=== PATIENT | female | born 1960 | race Caucasian/White ===

== ENCOUNTER → 2016-05-21 | Outpatient (CLI) | payer OTHER ==
--- NOTE | 2016-05-21 11:45 | NM ---
EXAMINATION TYPE: NM hepatobiliary wo EF DATE OF EXAM: 05/21/2016 10:15 AM COMPARISON: NONE HISTORY: Right upper quadrant pain, R 10.11 TECHNIQUE: After the intravenous administration of 4.53 mCi Tc 99m Mebrofenin hepatobiliary scintigra phy is performed. Immediate images post injection. FINDINGS: Prompt homogenous uptake of radiopharmaceutical within the liver. Biliary activity noted within 4 min utes. Small bowel uptake is detected by 12 minutes. Gallbladder activity is thought to be present by 16 minutes but overlaps the region of the common bile duct. IMPRESSION: Exam is thought to be within normal limits.
== END | disposition home or self-care (01) ==
LOC: RADNMMAIN 07:22
PROVIDERS: ATTEND Surgery
DX: R10.11 Right upper quadrant pain (principal); Z90.49 Acquired absence of other specified parts of digestive tract
CPT/HCPCS: 78226; A9537

== ENCOUNTER → 2016-07-10 | Outpatient (CLI) | payer OTHER ==
[2016-07-10 10:52] LABS: CH 30.1; CHCM 32.4; HDW 2.18; HGB 14.7 gm/dL (11.4-16.0); MCH 30.6 pg (25.0-35.0); MCHC 32.7 g/dL (31.0-37.0); MCV 93.4 fL (80.0-100.0); Mean Platelet Volume 7.3; RBC 4.81 m/uL (3.80-5.40); RDW 12.5 % (11.5-15.5); WBC 6.9 k/uL (3.8-10.6)
[2016-07-10 11:06] LABS: ALT 67 U/L (9-52); AST 32 U/L (14-36); Alkaline Phosphatase 86 U/L (38-126); Anion Gap 14 mmol/L; Blood Urea Nitrogen 17 mg/dL (7-17); Calcium 9.6 mg/dL (8.4-10.2); Carbon Dioxide 27 mmol/L (22-30); Chloride 103 mmol/L (98-107); Glucose 97 mg/dL (74-99); Non-African American GFR(MDRD) >60 (>60 ml/min/1.73 sqM); Potassium 3.8 mmol/L (3.5-5.1); Sodium 144 mmol/L (137-145); Total Bilirubin 0.6 mg/dL (0.2-1.3)
== END ==
LOC: LABWHC1 10:31
PROVIDERS: ATTEND Surgery
DX: J18.9 Pneumonia, unspecified organism (principal); R10.9 Unspecified abdominal pain
CPT/HCPCS: 36415; 80053; 82306; 85027

== ENCOUNTER → 2018-07-14 | Outpatient (CLI) | payer OTHER ==
[2018-07-14 19:46] LABS: T4, Free (Free Thyroxine) 1.1 ng/dL (0.80-1.80)
[2018-07-14 19:52] LABS: Vitamin D 25 Hydroxy 48.7 ng/mL (30.0-100.0)
[2018-07-14 21:28] LABS: ACTH 10.3 pg/mL (0.00-45.99)
[2018-07-14 22:25] LABS: Hemoglobin A1C 6.1 % (4.0-6.0)
== END | disposition home or self-care (01) ==
LOC: LABWHC1 12:21
PROVIDERS: ATTEND Internal Medicine Endocrinology, Diabetes & Metabolism
DX: R53.83 Other fatigue (principal); R73.09 Other abnormal glucose
CPT/HCPCS: 36415; 82024; 82306; 82533; 83001; 83036; 84146; 84439; 84443; 84481

== ENCOUNTER → 2019-02-23 | Outpatient (CLI) | payer OTHER ==
[2019-02-23 10:38] LABS: Appearance,Urine Clear (Clear); Bilirubin,Urine Negative (Negative); Blood,Urine Negative (Negative); Color,Urine Yellow; Glucose,Urine (UA) Negative (Negative); Ketones,Urine Negative (Negative); Leukocyte Esterase,Urine Negative (Negative); Nitrite,Urine Negative (Negative); PH, Urine 6.5 (5.0-8.0); Protein,Urine Negative (Negative); Specific Gravity,Urine 1.016 (1.001-1.035); Urobilinogen,Urine <2.0 mg/dL (<2.0)
[2019-02-23 10:47] LABS: HCT 42.4 % (34.0-46.0); HGB 13.9 gm/dL (11.4-16.0); MCH 31.4 pg (25.0-35.0); MCHC 32.9 g/dL (31.0-37.0); MCV 95.5 fL (80.0-100.0); Mean Platelet Volume 5.9; Platelet Count 267 k/uL (150-450); RBC 4.44 m/uL (3.80-5.40); RDW 14.4 % (11.5-15.5); WBC 6.1 k/uL (3.8-10.6)
[2019-02-23 17:35] LABS: African American GFR (CKD) 112.3 (60.0-200.0); Albumin 4.8 g/dL (3.80-4.90); Albumin/Globulin Ratio 2.53 (1.60-3.17); Anion Gap 7.4 mmol/L (4.00-12.00); BUN/Creat Ratio 28.57 Ratio (12.00-20.00); Calcium 9.9 mg/dL (8.7-10.3); Carbon Dioxide 28.6 mmol/L (21.6-31.8); Chol/HDL Ratio 4.45; Globulin 1.9 g/dL (1.6-3.3); LDL Cholesterol,Calculated 160.8 mg/dL (0.0-131.0); Potassium 4.2 mmol/L (3.5-5.5); Total Bilirubin 0.7 mg/dL (0.3-1.2); Total Protein 6.7 g/dL (6.2-8.2); VLDL Calculation 22.2 mg/dL (5.00-40.00)
[2019-02-23 19:47] LABS: Hemoglobin A1C 5.9 % (4.0-6.0)
== END ==
LOC: LABWHC1 09:30
PROVIDERS: ATTEND Internal Medicine Endocrinology, Diabetes & Metabolism
DX: Z00.01 Encounter for general adult medical examination with abnormal findings (principal); E11.9 Type 2 diabetes mellitus without complications
CPT/HCPCS: 36415; 80053; 80061; 81003; 82043; 82570; 83036; 84443; 85027

== ENCOUNTER → 2019-06-23 | Outpatient (CLI) | payer OTHER ==
--- NOTE | 2019-06-23 10:25 | US ---
EXAMINATION TYPE: US liver DATE OF EXAM: 06/23/2019 COMPARISON: NONE CLINICAL HISTORY: Elevated LFTs. Elevated liver enzymes. EXAM MEASUREMENTS: Liver Length: 14.3 cm Gallbladder Wall: Surgically absent cm CBD: .7 cm Right Kidney: 10 x 4 x 4.2 cm Pancreas: Obscured by bowel gas Liver: Increased attenuation Gallbladder: Surgically absent Evidence for sonographic Helm's sign: No CBD: wnl Right Kidney: wnl IMPRESSION: 1. Hepatic steatosis versus diffuse hepatocellular disease. Correlate clinically.
== END | disposition home or self-care (01) ==
LOC: RADUSMAIN 09:01
PROVIDERS: ATTEND Internal Medicine Rheumatology
DX: R94.5 Abnormal results of liver function studies (principal)
CPT/HCPCS: 76705

== ENCOUNTER → 2020-07-14 | Outpatient (CLI) | payer OTHER ==
[2020-07-14 18:58] LABS: Hemoglobin A1C 6.5 % (4.0-6.0)
[2020-07-15 02:02] LABS: African American GFR (CKD) 111.5 (60.0-200.0); Albumin 4.6 g/dL (3.80-4.90); Albumin/Globulin Ratio 2.42 (1.60-3.17); Anion Gap 14.6 mmol/L (4.00-12.00); BUN/Creat Ratio 34.29 Ratio (12.00-20.00); Calcium 9.6 mg/dL (8.7-10.3); Carbon Dioxide 22.4 mmol/L (21.6-31.8); Chol/HDL Ratio 2.64; Globulin 1.9 g/dL (1.6-3.3); LDL Cholesterol,Calculated 61.8 mg/dL (0.0-131.0); Non-African American GFR(CKD) 96.2 (60.0-200.0); Potassium 4.4 mmol/L (3.5-5.5); Total Bilirubin 0.3 mg/dL (0.3-1.2); Total Protein 6.5 g/dL (6.2-8.2); VLDL Calculation 15.2 mg/dL (5.00-40.00)
== END | disposition home or self-care (01) ==
LOC: LABWHC1 08:33
PROVIDERS: ATTEND Internal Medicine Endocrinology, Diabetes & Metabolism
DX: E11.9 Type 2 diabetes mellitus without complications (principal)
CPT/HCPCS: 36415; 80053; 80061; 82043; 82570; 83036; 84443

== ENCOUNTER 2020-09-16 11:59 | Emergency (ER) | payer OTHER ==
[2020-09-16 12:04] VITALS: TEMP 97.9
[2020-09-16] MEDS ORDERED: SODIUM CHLORIDE 0.9% 500 ML 500 ML IV STA (12:16)
--- NOTE | 2020-09-16 12:30 | ED ---
General Adult HPI - General Chief complaint: Headache Stated complaint: high BP Time Seen by Provider: 09/16/20 12:06 Source: patient, RN notes reviewed, old records reviewed Mode of arrival: ambulatory Limitations: no limitations - History of Present Illness Initial comments: 60-year-old female presents for evaluation of elevated blood pressure and mild headache. Patient has had a gradual onset headache over the past 3 weeks. She has also had blood pressure issues and has had some medication changes by her primary care physician. She has an appointment made with cardiology for blood pressure management. She is currently on losartan and has had a beta perry added within the past several weeks. Her blood pressure continues to be high on her home blood pressure cuff. She has no focal numbness or weakness. She's had some numbness in the bilateral hands when she wakes in the morning. No central chest pain. No dyspnea. Headache is a bitemporal squeezing type headache. Gradual onset. No thunderclap headache. No fever. No URI symptoms. - Related Data Home Medications Medication Instructions Recorded Confirmed ALPRAZolam [Xanax] 0.125 - 0.25 mg PO HS PRN 09/16/20 09/16/20 Celecoxib [CeleBREX] 200 mg PO BID 09/16/20 09/16/20 Citalopram Hydrobromide [CeleXA] 40 mg PO HS 09/16/20 09/16/20 Esomeprazole Magnesium [NexIUM] 40 mg PO HS 09/16/20 09/16/20 Folic Acid 1 mg PO BID 09/16/20 09/16/20 Gabapentin [Neurontin] 100 mg PO HS 09/16/20 09/16/20 Losartan/Hydrochlorothiazide 1 tab PO HS 09/16/20 09/16/20 [Losartan-Hctz 100-12.5 mg Tab] Metoprolol Succinate (ER) [Toprol 25 mg PO HS 09/16/20 09/16/20 XL] metFORMIN HCL [metFORMIN HCL ER] 500 mg PO HS 09/16/20 09/16/20 valACYclovir [Valtrex] 500 mg PO HS 09/16/20 09/16/20 Allergies Allergy/AdvReac Type Severity Reaction Status Date / Time No Known Allergies Allergy Verified 09/16/20 13:49 Review of Systems ROS Statement: Those systems with pertinent positive or pertinent negative responses have been documented in the HPI. ROS Other: All systems not noted in ROS Statement are negative. Past Medical History Past Medical History: Diabetes Mellitus, Hypertension History of Any Multi-Drug Resistant Organisms: None Reported Past Surgical History: Section, Orthopedic Surgery, Tubal Ligation Additional Past Surgical History / Comment(s): left knee scope, Past Psychological History: No Psychological Hx Reported Smoking Status: Never smoker Past Alcohol Use History: None Reported Past Drug Use History: None Reported General Exam Limitations: no limitations General appearance: alert, in no apparent distress Head exam: Present: atraumatic, normocephalic Eye exam: Present: normal appearance, PERRL ENT exam: Present: normal exam Neck exam: Present: normal inspection. Absent: tenderness, meningismus Respiratory exam: Present: normal lung sounds bilaterally. Absent: respiratory distress, wheezes Cardiovascular Exam: Present: regular rate, normal rhythm GI/Abdominal exam: Present: soft. Absent: distended, tenderness, guarding, rebound Extremities exam: Present: normal inspection, normal capillary refill. Absent: pedal edema, calf tenderness Neurological exam: Present: alert, oriented X3, CN II-XII intact. Absent: motor sensory deficit Psychiatric exam: Present: normal affect, normal mood Skin exam: Present: warm, dry, intact. Absent: cyanosis, diaphoretic Course Vital Signs 09/16/20 09/16/20 12:00 12:43 Temperature 97.9 F Pulse Rate 89 86 Respiratory 18 16 Rate Blood Pressure 180/84 153/87 O2 Sat by Pulse 97 99 Oximetry EKG Findings - EKG Comments: EKG Findings:: EKG: Normal sinus rhythm rate of 87, AR interval 146, QRS duration 74, QTC 447, no ST segment elevation, T-wave inversion in lead 3. Medical Decision Making - Medical Decision Making 52-year-old female, workup is initiated, including EKG, CBC, CMP, troponin, urinalysis. All laboratory testing is unremarkable. EKG is sinus rhythm. Troponin is negative. I did perform a CT brain given the complaint of headache and hypertension. This is negative for scleral hemorrhage or mass effect. No acute findings on imaging. Patient's blood pressure is down trending in the emergency department with out specific treatment. She will monitor blood pressure at home closely and continue to follow up on an outpatient basis. - Lab Data Result diagrams: 09/16/20 12:36 09/16/20 12:36 Lab Results 09/16/20 09/16/20 09/16/20 Range/Units 12:36 12:36 12:36 WBC 7.6 (3.8-10.6) k/uL RBC 4.53 (3.80-5.40) m/uL Hgb 13.6 (11.4-16.0) gm/dL Hct 41.9 (34.0-46.0) % MCV 92.7 (80.0-100.0) fL MCH 30.0 (25.0-35.0) pg MCHC 32.4 (31.0-37.0) g/dL RDW 13.8 (11.5-15.5) % Plt Count 275 (150-450) k/uL MPV 7.3 Neutrophils % 54 % Lymphocytes % 33 % Monocytes % 6 % Eosinophils % 3 % Basophils % 1 % Neutrophils # 4.1 (1.3-7.7) k/uL Lymphocytes # 2.5 (1.0-4.8) k/uL Monocytes # 0.5 (0-1.0) k/uL Eosinophils # 0.2 (0-0.7) k/uL Basophils # 0.1 (0-0.2) k/uL Sodium 139 (137-145) mmol/L Potassium 4.2 (3.5-5.1) mmol/L Chloride 105 (98-107) mmol/L Carbon Dioxide 26 (22-30) mmol/L Anion Gap 8 mmol/L BUN 18 H (7-17) mg/dL Creatinine 0.60 (0.52-1.04) mg/dL Est GFR (CKD-EPI)AfAm >90 (>60 ml/min/1.73 sqM) Est GFR (CKD-EPI)NonAf >90 (>60 ml/min/1.73 sqM) Glucose 90 (74-99) mg/dL Calcium 9.3 (8.4-10.2) mg/dL Magnesium 2.0 (1.6-2.3) mg/dL Total Bilirubin 0.4 (0.2-1.3) mg/dL AST 32 (14-36) U/L ALT 36 H (4-34) U/L Alkaline Phosphatase 111 (38-126) U/L Troponin I <0.012 (0.000-0.034) ng/mL Total Protein 7.3 (6.3-8.2) g/dL Albumin 4.3 (3.5-5.0) g/dL Urine Color Urine Appearance (Clear) Urine pH (5.0-8.0) Ur Specific [place] (1.001-1.035) Urine Protein (Negative) Urine Glucose (UA) (Negative) Urine Ketones (Negative) Urine Blood (Negative) Urine Nitrite (Negative) Urine Bilirubin (Negative) Urine Urobilinogen (<2.0) mg/dL Ur Leukocyte Esterase (Negative) 09/16/20 Range/Units 12:46 WBC (3.8-10.6) k/uL RBC (3.80-5.40) m/uL Hgb (11.4-16.0) gm/dL Hct (34.0-46.0) % MCV (80.0-100.0) fL MCH (25.0-35.0) pg MCHC (31.0-37.0) g/dL RDW (11.5-15.5) % Plt Count (150-450) k/uL MPV Neutrophils % % Lymphocytes % % Monocytes % % Eosinophils % % Basophils % % Neutrophils # (1.3-7.7) k/uL Lymphocytes # (1.0-4.8) k/uL Monocytes # (0-1.0) k/uL Eosinophils # (0-0.7) k/uL Basophils # (0-0.2) k/uL Sodium (137-145) mmol/L Potassium (3.5-5.1) mmol/L Chloride (98-107) mmol/L Carbon Dioxide (22-30) mmol/L Anion Gap mmol/L BUN (7-17) mg/dL Creatinine (0.52-1.04) mg/dL Est GFR (CKD-EPI)AfAm (>60 ml/min/1.73 sqM) Est GFR (CKD-EPI)NonAf (>60 ml/min/1.73 sqM) Glucose (74-99) mg/dL Calcium (8.4-10.2) mg/dL Magnesium (1.6-2.3) mg/dL Total Bilirubin (0.2-1.3) mg/dL AST (14-36) U/L ALT (4-34) U/L Alkaline Phosphatase (38-126) U/L Troponin I (0.000-0.034) ng/mL Total Protein (6.3-8.2) g/dL Albumin (3.5-5.0) g/dL Urine Color Light Yellow Urine Appearance Clear (Clear) Urine pH 7.0 (5.0-8.0) Ur Specific [place] 1.005 (1.001-1.035) Urine Protein Negative (Negative) Urine Glucose (UA) Negative (Negative) Urine Ketones Negative (Negative) Urine Blood Negative (Negative) Urine Nitrite Negative (Negative) Urine Bilirubin Negative (Negative) Urine Urobilinogen <2.0 (<2.0) mg/dL Ur Leukocyte Esterase Negative (Negative) Disposition Clinical Impression: Headache, Hypertension Disposition: HOME SELF-CARE Condition: Good Instructions (If sedation given, give patient instructions): Hypertension (ED) Is patient prescribed a controlled substance at d/c from ED?: No Referrals: Madhu Tejada MD [Primary Care Provider] - 1-2 days Eduin Tripathi MD [STAFF PHYSICIAN] - 1-2 days Time of Disposition: 13:56
[2020-09-16 12:44] VITALS: BP 153/87; PULSE 86; RESP 16
[2020-09-16 12:58] LABS: Basophils # (A) 0.1 k/uL (0-0.2); Basophils % (A) 1 %; Eosinophils # (A) 0.2 k/uL (0-0.7); Eosinophils % (A) 3 %; HCT 41.9 % (34.0-46.0); HGB 13.6 gm/dL (11.4-16.0); Lymphocytes # (A) 2.5 k/uL (1.0-4.8); Lymphocytes % (A) 33 %; MCHC 32.4 g/dL (31.0-37.0); MCV 92.7 fL (80.0-100.0); Mean Platelet Volume 7.3; Monocytes # (A) 0.5 k/uL (0-1.0); Monocytes % (A) 6 %; Neutrophils # (A) 4.1 k/uL (1.3-7.7); Neutrophils % (A) 54 %; Platelet Count 275 k/uL (150-450); RBC 4.53 m/uL (3.80-5.40); RDW 13.8 % (11.5-15.5); WBC 7.6 k/uL (3.8-10.6)
[2020-09-16 12:59] LABS: Appearance,Urine Clear (Clear); Bilirubin,Urine Negative (Negative); Blood,Urine Negative (Negative); Color,Urine Light Yellow; Glucose,Urine (UA) Negative (Negative); Ketones,Urine Negative (Negative); Leukocyte Esterase,Urine Negative (Negative); Nitrite,Urine Negative (Negative); Protein,Urine Negative (Negative); Specific Gravity,Urine 1.005 (1.001-1.035); Urobilinogen,Urine <2.0 mg/dL (<2.0)
[2020-09-16 13:17] LABS: ALT 36 U/L (4-34); AST 32 U/L (14-36); African American GFR (CKD) >90 (>60 ml/min/1.73 sqM); Albumin 4.3 g/dL (3.5-5.0); Alkaline Phosphatase 111 U/L (38-126); Anion Gap 8 mmol/L; Blood Urea Nitrogen 18 mg/dL (7-17); Calcium 9.3 mg/dL (8.4-10.2); Carbon Dioxide 26 mmol/L (22-30); Chloride 105 mmol/L (98-107); Glucose 90 mg/dL (74-99); Non-African American GFR(CKD) >90 (>60 ml/min/1.73 sqM); Potassium 4.2 mmol/L (3.5-5.1); Sodium 139 mmol/L (137-145); Total Bilirubin 0.4 mg/dL (0.2-1.3); Total Protein 7.3 g/dL (6.3-8.2)
--- NOTE | 2020-09-16 13:46 | CT ---
EXAMINATION TYPE: CT brain wo con DATE OF EXAM: 09/16/2020 COMPARISON: None INDICATION: Elevated blood pressure with headache and hand tingling. DLP: 1103.4 mGycm, Automated exposure control for dose reduction was used. CONTRAST: None CT of the brain is performed utilizing 3 mm thick sections through the posterior fossa and 3 mm thick sections through the remaining calvarium. Study is performed within 24 hours of arrival to the hosp [facility]. No abnormal hyperdensity is present to suggest an acute intracranial hemorrhage. No mass lesion is evident. No acute infarcts are evident. Ventricles and sulci are appropriate for the patient age. Paranasal sinuses and mastoid air cells within the [id number] are clear. IMPRESSIONS: 1. No acute intracranial process.
[2020-09-16 13:54] LABS: INR 0.9 (<1.2); Partial Thromboplastin Time 23.9 sec (22.0-30.0)
== END 2020-09-16 14:23 | disposition home or self-care (01) ==
LOC: EC 11:59
DX: I10 Essential (primary) hypertension (principal); E11.9 Type 2 diabetes mellitus without complications; Z79.899 Other long term (current) drug therapy; Z79.84 Long term (current) use of oral hypoglycemic drugs; Z79.1 Long term (current) use of non-steroidal anti-inflammatories (NSAID)
CPT/HCPCS: 36415; 70450; 80053; 81003; 83735; 84484; 85025; 85610; 85730; 93005; 99284

== ENCOUNTER 2021-09-26 16:23 | Emergency (ER) | payer OTHER ==
[2021-09-26 16:35] VITALS: RESP 18; TEMP 98.3
--- NOTE | 2021-09-26 16:52 | XR ---
EXAMINATION TYPE: XR chest 2V DATE OF EXAM: 09/26/2021 4:42 PM COMPARISON: None TECHNIQUE: XR chest 2V Frontal and lateral views of the chest. CLINICAL INDICATION:Female, 61 years old with history of cough x 2 weeks; FINDINGS: Lungs/Pleura: There is no evidence of pleural effusion, focal consolidation, or pneumothorax. Pulmonary vascularity: Unremarkable. Heart/mediastinum: Cardiomediastinal silhouette is unremarkable. Musculoskeletal: No acute osseous pathology. IMPRESSION: No acute cardiopulmonary disease/process.
[2021-09-26] MEDS ORDERED: predniSONE 20 MG TAB PO STA (21:25)
[2021-09-26] MEDS ORDERED: ALBUTEROL HFA INHALER INHALATION STA (21:25)
--- NOTE | 2021-09-26 22:03 | ED ---
General Adult HPI - General Chief complaint: Upper Respiratory Infection Stated complaint: chest congestion, cough Time Seen by Provider: 09/26/21 21:35 Source: patient Mode of arrival: ambulatory Limitations: no limitations - History of Present Illness Initial comments: Patient is a 61-year-old female with past medical history remarkable for hypertension, [id number] diabetes who presents emergency Department complaining of a persistent productive cough for the last 2 weeks. Was diagnosed with "walking pneumonia" by urgent care. They obtain a chest x-ray but did not do any viral swabs. She did her initially with antibiotics, steroids. States that she returned last week with continued symptoms and she was given a shot of antibiotics. His presented today for continued symptoms. Was tested for Covid but uncertain the results. Patient was vaccinated for COVID-19 fluid. Also received the Covid 19 booster. Denies any chest pain. Denies any abdominal pain, nausea, vomiting. Denies any fevers, chills. No other sick contacts. No urinary complaints. No other acute complaints at this time. Presents for further evaluation. Patient was evaluated when she was placed in a room following a prolonged wait due to the emergency department volumes.Patient states her cough is productive of green mucous. She also endorses rhinorrhea. - Related Data Home Medications Medication Instructions Recorded Confirmed Celecoxib [CeleBREX] 200 mg PO BID 09/16/20 09/26/21 Esomeprazole Magnesium [NexIUM] 40 mg PO DAILY 09/16/20 09/26/21 Folic Acid 1 mg PO DAILY 09/16/20 09/26/21 Losartan/Hydrochlorothiazide 1 tab PO HS 09/16/20 09/26/21 [Losartan-Hctz 100-12.5 mg Tab] valACYclovir [Valtrex] 500 mg PO HS 09/16/20 09/26/21 Biotin 10,000 mcg PO DAILY 09/26/21 09/26/21 Black Cohosh 80 mg PO DAILY 09/26/21 09/26/21 Cholecalciferol [Vitamin D3 (125 125 mcg PO DAILY 09/26/21 09/26/21 Mcg = 5000 Iu)] Semaglutide [Rybelsus] 7 mg PO DAILY 09/26/21 09/26/21 Sertraline [Zoloft] 100 mg PO HS 09/26/21 09/26/21 carvediloL [Coreg] 6.25 mg PO BID 09/26/21 09/26/21 metHOTREXate sodium [Methotrexate] 7.5 mg PO WESA 09/26/21 09/26/21 Previous Rx's Medication Instructions Recorded Albuterol Inhaler [Ventolin Hfa 1 puff INHALATION RT-TID #8 gm 09/26/21 Inhaler] Doxycycline Hyclate 100 mg PO BID 7 Days #14 capsule 09/26/21 predniSONE [Deltasone] 40 mg PO DAILY 5 Days #10 tab 09/26/21 Allergies Allergy/AdvReac Type Severity Reaction Status Date / Time No Known Allergies Allergy Verified 09/26/21 21:51 Review of Systems ROS Statement: Those systems with pertinent positive or pertinent negative responses have been documented in the HPI. Review of Systems: CONST: Denies fever EYES: Denies blurry vision ENT: Endorses nasal congestion C/V: Denies Chest pain RESP: Endorses productive cough. GI: Denies abdominal pain : Denies dysuria SKIN: Denies rash. MSK: Denies joint pain. NEURO: Denies headache ROS Other: All systems not noted in ROS Statement are negative. Past Medical History Past Medical History: Diabetes Mellitus, Hypertension History of Any Multi-Drug Resistant Organisms: None Reported Past Surgical History: Section, Orthopedic Surgery, Tubal Ligation Additional Past Surgical History / Comment(s): left knee scope, Past Psychological History: No Psychological Hx Reported Smoking Status: Never smoker Past Alcohol Use History: None Reported Past Drug Use History: None Reported General Exam - General Exam Comments Initial Comments: General: Appears in no acute distress. HEAD: Normal with no signs of head trauma. EYES: PERRLA, EOMI, conjunctiva normal, no discharge. ENT: Hearing grossly intact, normal oropharynx. RESPIRATORY: Mild end expiratory wheeze bilaterally, more central in nature. Suspect bronchospasm. No stridor. Patient's pulse ox 94% or higher on room air. No increased work of breathing. C/V: Regular rate and rhythm. S1 and S2 auscultated, no edema, peripheral pulses 2+ and intact throughout ABD: Abd is soft, nontender, nondistended EXT: Normal range of motion, no obvious deformity SKIN: No rashes or lesions observed on exposed skin. NEURO: Alert and oriented 4. Limitations: no limitations Course Vital Signs 09/26/21 09/26/21 16:33 21:43 Temperature 98.3 F Pulse Rate 96 Respiratory 18 18 Rate Blood Pressure 118/75 O2 Sat by Pulse 94 L Oximetry Medical Decision Making - Medical Decision Making Based on the patient's presentation and physical exam, I'm concerned for upper respiratory illness for the patient. She appears to be having some bronchospasm at bedside. Vital signs are within normal limits. Chest x-ray was already obtained and showed no acute cardiopulmonary process. No signs of acute infection. However I did recommend that we obtain Covid, flu, RSV swabs. She was in agreement this plan. I do not believe that further testing is required at this time. She'll be given prednisone as well as albuterol as she does have a slight end expiratory wheeze at this time. She was in agreement with this plan. Patient's viral swabs are negative for flu, RSV, Covid. On reevaluation, patient's vital signs remain within normal limits and stable. I believe it is safe for her to be discharged at this time. We did discuss she a be experiencing prolonged bronchitis. She also has a bronchospastic component to it. Wheezing is improved. She'll be discharged home on steroids, albuterol inhaler, as well as about expert she'll be given a dose of doxycycline prior to discharge as well as a prescription. She was in agreement this plan. I recommended close follow-up with her PCP. I will provide the patient with a prescription for doxycycline, albuterol inh aler, prednisone. I instructed the patient to follow up with their PCP in the next 3 days. I explained that the patient should return to the emergency department if they experience any worsening symptoms. Strict return precautions were discussed with the patient. The patient expressed understanding of these instructions. I answered all questions that the patient had. The patient was discharged home in good condition with their prescriptions and follow up information. - Lab Data Lab Results 09/26/21 Range/Units 21:41 Influenza Type A (PCR) Not Detected (Not Detectd) Influenza Type B (PCR) Not Detected (Not Detectd) RSV (PCR) Not Detected (Not Detectd) SARS-CoV-2 (PCR) Not Detected (Not Detectd) Disposition Clinical Impression: Bronchitis Disposition: HOME SELF-CARE Condition: Good Instructions (If sedation given, give patient instructions): Upper Respiratory Infection (ED), Acute Bronchitis (ED) Prescriptions: predniSONE [Deltasone] 40 mg PO DAILY 5 Days #10 tab Doxycycline Hyclate 100 mg PO BID 7 Days #14 capsule Albuterol Inhaler [Ventolin Hfa Inhaler] 1 puff INHALATION RT-TID #8 gm Is patient prescribed a controlled substance at d/c from ED?: No Referrals: Madhu Tejada MD [Primary Care Provider] - 1-2 days Time of Disposition: 22:50
[2021-09-26] MEDS ORDERED: DOXYCYCLINE 100 MG CAP PO STA (22:49)
[2021-09-26 23:28] VITALS: BP 116/71; PULSE 61
== END 2021-09-26 23:29 | disposition home or self-care (01) ==
LOC: EC 16:23
DX: J40 Bronchitis, not specified as acute or chronic (principal); E11.9 Type 2 diabetes mellitus without complications; I10 Essential (primary) hypertension; Z20.822 Contact with and (suspected) exposure to COVID-19; Z79.899 Other long term (current) drug therapy; Z79.84 Long term (current) use of oral hypoglycemic drugs
CPT/HCPCS: 94640; 87636; 71046; 99283; J7512

== ENCOUNTER → 2021-12-04 | Outpatient (CLI) | payer OTHER ==
--- NOTE | 2021-12-04 16:23 | CT ---
EXAMINATION TYPE: CT chest wo con DATE OF EXAM: 12/04/2021 COMPARISON: 09/26/2021 radiograph HISTORY: 61-year-old female R05.9, cough and SOB x3 months TECHNIQUE: Contiguous axial scanning of the chest without IV contrast. Coronal and sagittal reconstru ctions performed. CT DLP: 765 mGycm Automated exposure control for dose reduction was used. FINDINGS: Heart normal size without pericardial effusion. Some focal proximal LAD coronary artery calcification s are noted. Aorta normal caliber with bovine configuration to the aortic arch. No thoracic lymphadenopathy by CT size criteria. Minimal nodular subpleural atelectasis posteriorly in the lungs. Minimal strandy atelectasis at the l ezequiel bases. No consolidation or pleural effusion. Tiny hiatal hernia. Visualized upper abdomen shows marked diminished attenuation of the hepatic paren chyma and prior cholecystectomy change. Bones: Mild anterior endplate spondylosis mid thoracic spine with accentuated midthoracic kyphosis. IMPRESSION: 1. NO ACUTE PULMONARY PROCESS. 2. SOME FOCAL PROXIMAL LAD CORONARY ARTERY CALCIFICATIONS NOTED. 3. TINY HIATAL HERNIA. 4. SEVERE HEPATIC STEATOSIS. CORRELATE WITH LFT's, LIPID PROFILE, AND PATIENT RISK FACTORS.
== END | disposition home or self-care (01) ==
LOC: RADCTMAIN 14:36
PROVIDERS: ATTEND Internal Medicine Pulmonary Disease
DX: I25.10 Atherosclerotic heart disease of native coronary artery without angina pectoris (principal); K76.0 Fatty (change of) liver, not elsewhere classified
CPT/HCPCS: 71250

== ENCOUNTER → 2024-09-24 | Outpatient (CLI) | payer OTHER ==
[2024-09-24 15:08] LABS: Basophils # (A) 0.06 X 10*3/uL (0.00-0.10); Basophils % (A) 0.8 %; Eosinophils # (A) 0.17 X 10*3/uL (0.04-0.35); Eosinophils % (A) 2.3 %; HCT 45.7 % (37.2-46.3); HGB 14.9 g/dL (12.0-15.0); Lymphocytes # (A) 1.56 X 10*3/uL (0.90-5.00); Lymphocytes % (A) 21.4 %; MCH 30.7 pg (27.0-32.0); MCHC 32.6 g/dL (32.0-37.0); Mean Platelet Volume 10.8 FL (9.5-12.2); Monocytes % (A) 9.6 %; NRBC Per 100 WBC 0 X 10*3/uL (0.00-0.01); Neutrophils # (A) 4.78 X 10*3/uL (1.80-7.70); Neutrophils % (A) 65.5 %; Platelet Count 249 X 10*3/uL (140-440); RBC 4.86 X 10*6/uL (4.10-5.20); RDW 13.2 % (11.5-14.5)
[2024-09-24 15:28] LABS: Erythrocyte Sedimentation Rate 13 mm/Hr (0-30)
[2024-09-24 16:32] LABS: ALT 44 U/L (8-44); AST 25 U/L (13-35); BUN/Creat Ratio 33.29 Ratio (12.00-20.00); Blood Urea Nitrogen 23.3 mg/dL (9.0-27.0); C Reactive Protein <0.30 mg/dL (0.00-0.80); Calcium 9.6 mg/dL (8.7-10.3); Carbon Dioxide 24.5 mmol/L (21.6-31.8); Chloride 104 mmol/L (96-109); Glucose 114 mg/dL (70-110); Potassium 3.8 mmol/L (3.5-5.5); Sodium 142 mmol/L (135-145)
== END | disposition home or self-care (01) ==
LOC: LABWHC1 08:51
PROVIDERS: ATTEND Internal Medicine Rheumatology
DX: Z51.81 Encounter for therapeutic drug level monitoring (principal); L40.50 Arthropathic psoriasis, unspecified; Z79.899 Other long term (current) drug therapy
CPT/HCPCS: 36415; 80048; 84450; 84460; 85025; 85652; 86140